=== PATIENT | female | born 1975 | race Caucasian/White ===

== ENCOUNTER 2016-05-28 07:00 | Inpatient (IN) | payer MEDICAID ==
[~2016-05-28 07:00] MED LIST: Dexamethasone 4 MG/ML SDV ONE; Neostigmine Methylsulfate 1 MG/ML 5 ML Syringe ONE; Ondansetron 4 MG/2 ML SDV ONE; Propofol 200 MG/20 ML SDV ONE; Rocuronium 50 MG/5 ML Vial ONE; Succinylcholine/Normal Saline 200 MG/10 ML Syringe ONE; cefOXitin 2 GM Vial ONE; cefOXitin 2 GM in Sodium Chloride 0.9% 50 ML IV ONE; fentaNYL 250 MCG/5 ML SDV ONE
[2016-05-28] MEDS ORDERED: Celecoxib 200 MG Cap PO ONE (07:30)
[2016-05-28] MEDS ORDERED: Acetaminophen Soln 650 MG/20.3 ML UD Cup PO ONE (07:30)
[2016-05-28] MEDS ORDERED: Dextrose 5%-Lactated Ringers 1,000 ML IV SCH (07:30)
[2016-05-28] MEDS ORDERED: Scopolamine 1.5 MG Transdermal Patch TOP SCH (07:30)
[2016-05-28] MEDS ORDERED: Gabapentin 300 MG Cap PO ONE (07:30)
[2016-05-28] MEDS ORDERED: fentaNYL 100 MCG/2 ML SDV ONE (07:40)
[2016-05-28] MEDS ORDERED: Pantoprazole 40 MG Vial IVPUSH ONE (08:00)
[2016-05-28] MEDS ORDERED: Lidocaine 2% 100 MG/5 ML Syringe IVPUSH ONE (08:30)
[2016-05-28] MEDS ORDERED: Ropivacaine 60 ML, Dexamethasone 8 MG, EPINEPHrine 0.4 MG, Sodium Chloride 0.9% 17.6 ML NERVRT SCH ×4 (08:30)
[2016-05-28] MEDS ORDERED: cefOXitin 2 GM in Sodium Chloride 0.9% 50 ML IV ONE (08:30)
[2016-05-28] MEDS ORDERED: Ketamine 500 MG/5 ML MDV IV SCH (08:30)
[2016-05-28] MEDS ORDERED: Lidocaine 1% 2 ML ONE (08:48)
[2016-05-28] MEDS ORDERED: Oxymetazoline 0.05% Nasal Spray 15 ML Bottle ONE (09:02)
[2016-05-28] MEDS ORDERED: Lactated Ringers 1,000 ML ONE (09:31)
[2016-05-28] MEDS ORDERED: fentaNYL 250 MCG/5 ML SDV ONE (09:45)
[2016-05-28] MEDS ORDERED: Labetalol 20 MG/4 ML Syringe ONE (10:02)
[2016-05-28] MEDS ORDERED: cefOXitin 2 GM Vial ONE (10:28)
[2016-05-28] MEDS ORDERED: Sodium Chloride 0.9% 10 ML ONE (10:28)
[2016-05-28] MEDS ORDERED: fentaNYL 100 MCG/2 ML SDV IVPUSH ONE (11:25)
[2016-05-28] MEDS ORDERED: hydrOXYzine HCl 50 MG/ML SDV IM ONE (11:26)
[2016-05-28] MEDS ORDERED: HYDROmorphone/Normal Saline 15 MG/30 ML PCA IV ONE (13:15)
[2016-05-28] MEDS ORDERED: HYDROmorphone/Normal Saline 15 MG/30 ML PCA IV PRN (13:26)
[2016-05-28] MEDS ORDERED: Naloxone 0.4 MG/ML SDV IV PRN (13:26)
[2016-05-28] MEDS: Dextrose 5%-Lactated Ringers 1,000 ML IV SCH ×2 (13:42→21:45)
[2016-05-28] MEDS: Lidocaine 0.4%/D5W 2 GM/500 ML BAG IV SCH (13:44)
[2016-05-28] MEDS ORDERED: Ondansetron 4 MG/2 ML SDV IVPUSH PRN (13:45)
[2016-05-28] MEDS ORDERED: hydrOXYzine HCl 50 MG/ML SDV IM PRN (13:45)
[2016-05-28] MEDS ORDERED: SCOPOLAMINE PATCH ASK TOP SCH (13:45)
[2016-05-28] MEDS ORDERED: Labetalol 20 MG/4 ML Syringe IVPUSH PRN (13:45)
[2016-05-28] MEDS ORDERED: Metoclopramide 10 MG/2 ML SDV IV PRN (13:48)
[2016-05-28] MEDS ORDERED: diphenhydrAMINE 50 MG/ML SDV IV PRN (13:49)
[2016-05-28] MEDS ORDERED: Lidocaine 0.4%/D5W 2 GM/500 ML BAG IV SCH (14:00)
[2016-05-28] MEDS: Gabapentin 250 MG/5 ML Solution ML 470 ML Bottle PO SCH ×2 (14:35→21:14)
[2016-05-28] MEDS: cefOXitin 2 GM in Sodium Chloride 0.9% 50 ML IV SCH ×2 (14:40→19:15)
[2016-05-28] MEDS ORDERED: MVI, Adult with Vitamin K 10 ML, Thiamine 200 MG, Chromium/Copper/Mang/Selen/Zn 1 ML in... IV SCH ×4 (16:00)
[2016-05-28] MEDS: Acetaminophen Soln 650 MG/20.3 ML UD Cup PO SCH ×2 (16:04→21:14)
[2016-05-28] MEDS: Heparin Sodium 5,000 Units/ML Vial SUBCUT SCH (19:04)
[2016-05-29] MEDS: Lidocaine 0.4%/D5W 2 GM/500 ML BAG IV SCH (01:59)
[2016-05-29] MEDS: cefOXitin 2 GM in Sodium Chloride 0.9% 50 ML IV SCH ×2 (02:07→08:56)
[2016-05-29] MEDS ORDERED: Iohexol 647 MG/ML 50 ML SDV PO SCH (03:00)
[2016-05-29] MEDS: Dextrose 5%-Lactated Ringers 1,000 ML IV SCH ×2 (04:06→12:26)
[2016-05-29] MEDS: Acetaminophen Soln 650 MG/20.3 ML UD Cup PO SCH ×4 (04:10→21:40)
[2016-05-29] MEDS: Heparin Sodium 5,000 Units/ML Vial SUBCUT SCH ×2 (05:24→17:19)
[2016-05-29] MEDS: Pantoprazole 40 MG Vial IVPUSH SCH (05:24)
[2016-05-29] MEDS: Celecoxib 200 MG Cap PO SCH (09:00)
[2016-05-29] MEDS ORDERED: Non-Formulary Medication 1 Each (Fexofenadine [Allegra] 180 MG) PO SCH (09:00)
[2016-05-29] MEDS: SCOPOLAMINE PATCH CHECK TOP SCH (09:01)
[2016-05-29] MEDS: Gabapentin 250 MG/5 ML Solution ML 470 ML Bottle PO SCH ×3 (09:03→20:19)
--- NOTE | 2016-05-29 09:12 | PN ---
DATE OF SERVICE: 05/29/2016 SUBJECTIVE: Ameena is postop day 1. She is tolerating the clear liquid diet. She did have her AUTOMATIC DRILL OPERATOR last night for pain control. She has been up ambulating. REVIEW OF SYSTEMS: Remainder of review of systems negative for any pertinent positives or negatives. OBJECTIVE: GENERAL: Ameena Carmichael is a 41-year-old female. She is alert and orientated. VITAL SIGNS: TPR is 97, 67, 20, blood pressure 181/91. It was rechecked at 150/85. HEENT: Negative. NECK: Supple. HEART: Regular rate and rhythm. LUNGS: Clear. ABDOMEN: Dressings are dry and intact. Abdominal binder is on. She has 1 HARLEY drain, which has drained 128 mL of a serosanguineous drainage. EXTREMITIES: Without peripheral edema. ASSESSMENT: 1. Bilateral tap block. 2. Laparoscopic Roselyn-en-Y gastric bypass surgery and liver biopsy. 3. Repair of incarcerated umbilical hernia and diaphragmatic hernia and excision of skin tag, left thigh. 4. Morbid obesity. 5. Hepatomegaly. 6. Incarcerated umbilical hernia. 7. Periesophageal hernia. 8. Skin tag left thigh on 05/28/2016. PLAN: 1. Discontinue AUTOMATIC DRILL OPERATOR. 2. Discontinue telemetry and continuous pulse ox when lidocaine is in. 3. Discontinue Choi catheter. 4. Decrease IV to 100 mL per hour. 5. Step-2 gastric bypass diet without cereal. She is to restart her home medication of Nilam 180 mg p.o. b.i.d., topiramate 50 mg p.o. daily, and fluoxetine/Prozac 40 mg p.o. daily. 6. Good pulmonary toilet encouraged. 7. We will evaluate p.r.n. or in a.m. Ruby Johnson PA-C /[id number]
--- NOTE | 2016-05-29 09:26 | CR ---
Findings: Surgical drain left upper quadrant. Contrast within the Roselyn limb. No dilatation. No gross evidence for leakage.
[2016-05-29] MEDS: Topiramate 25 MG Tab PO SCH (10:03)
[2016-05-29] MEDS: Loratadine 10 MG Tab.DIS PO SCH (10:04)
[2016-05-29] MEDS: FLUoxetine 20 MG Cap PO SCH (10:04)
[2016-05-29] MEDS: HYDROmorphone 2 MG Tab PO PRN ×3 (13:09→23:46)
[2016-05-29] MEDS ORDERED: MVI, Adult with Vitamin K 10 ML, Thiamine 200 MG, Chromium/Copper/Mang/Selen/Zn 1 ML in... IV SCH ×4 (16:00)
[2016-05-30] MEDS: Dextrose 5%-Lactated Ringers 1,000 ML IV SCH (02:55)
[2016-05-30] MEDS: Acetaminophen Soln 650 MG/20.3 ML UD Cup PO SCH ×4 (05:03→21:38)
[2016-05-30] MEDS: Pantoprazole 40 MG Vial IVPUSH SCH (05:04)
[2016-05-30] MEDS: Heparin Sodium 5,000 Units/ML Vial SUBCUT SCH ×2 (05:04→18:03)
[2016-05-30] MEDS: HYDROmorphone 2 MG Tab PO PRN ×4 (05:22→21:37)
[2016-05-30] MEDS: Celecoxib 200 MG Cap PO SCH (08:38)
[2016-05-30] MEDS: Loratadine 10 MG Tab.DIS PO SCH (08:38)
[2016-05-30] MEDS: Topiramate 25 MG Tab PO SCH (08:39)
[2016-05-30] MEDS: FLUoxetine 20 MG Cap PO SCH (08:39)
[2016-05-30] MEDS: Gabapentin 250 MG/5 ML Solution ML 470 ML Bottle PO SCH ×3 (08:47→20:44)
[2016-05-30] MEDS: SCOPOLAMINE PATCH CHECK TOP SCH (08:58)
[2016-05-30] MEDS ORDERED: Cyanocobalamin (Vitamin B12) 1,000 MCG/ML SDV IM ONE (09:00)
[2016-05-30] MEDS ORDERED: Magnesium Hydroxide 400 MG/5 ML Susp 30 ML Cup PO PRN (12:26)
[2016-05-30] MEDS ORDERED: Magnesium Hydroxide 400 MG/5 ML Susp 30 ML Cup PO ONE (13:00)
[2016-05-31] MEDS: Acetaminophen Soln 650 MG/20.3 ML UD Cup PO SCH ×2 (04:24→09:09)
[2016-05-31] MEDS: HYDROmorphone 2 MG Tab PO PRN (04:24)
[2016-05-31] MEDS: Heparin Sodium 5,000 Units/ML Vial SUBCUT SCH (05:50)
[2016-05-31] MEDS: Topiramate 25 MG Tab PO SCH (09:08)
[2016-05-31] MEDS: Celecoxib 200 MG Cap PO SCH (09:08)
[2016-05-31] MEDS: FLUoxetine 20 MG Cap PO SCH (09:09)
[2016-05-31] MEDS: Loratadine 10 MG Tab.DIS PO SCH (09:09)
[2016-05-31] MEDS: SCOPOLAMINE PATCH CHECK TOP SCH (09:10)
[2016-05-31] MEDS: Gabapentin 250 MG/5 ML Solution ML 470 ML Bottle PO SCH (09:13)
[2016-05-31 11:12] VITALS: BP 145/86
--- NOTE | 2016-06-01 12:35 | PN ---
DATE OF SERVICE: 05/30/2016 The patient has been afebrile with stable vital signs. No major problems have been noted overnight. Oral intake was fairly good, around 1200 mL. We will go on to the step-2 diet today. Otherwise, her IV , and probably ready for discharge home tomorrow. Checo Taveras MD /[id number]
--- NOTE | 2016-06-01 14:08 | DISCH ---
FINAL DIAGNOSES: 1. Morbid obesity. 2. Incarcerated umbilical hernia. 3. Large paraesophageal diaphragmatic hernia. 4. Marked hepatomegaly. 5. Irritated skin tag at left thigh. SECONDARY DIAGNOSES: 1. History of depression. 2. History of carcinoma in situ of the cervix. OPERATIVE PROCEDURE: Laparoscopic Roselyn-en-Y gastric bypass with long limb gastroenterostomy, Bhavesh-Cut needle liver biopsy, repair of incarcerated umbilical hernia, and repair of paraesophageal diaphragmatic hernia along with excision of skin tags at left thigh. This was done on 05/28. HOSPITAL COURSE: This is a 41-year-old female, presenting with longstanding morbid obesity and increasingly significant comorbidities. After preoperative evaluation and discussion, she wished to proceed with a gastric bypass procedure. She also had a large umbilical hernia, which had to be repaired concurrently. These were performed on the date of surgery. The patient also had an irritated skin tag on her left thigh, which was excised. On examination, the patient has marked hepatomegaly and Bhavesh-Cut needle liver biopsy was obtained and a large paraesophageal diaphragmatic hernia was also present and likewise repaired. Postoperatively, the patient did have enough pain, despite the narcotic regimen, that she required some IV and subsequently oral Dilaudid, likely related to the extent of the umbilical hernia repair with the TAP blocks not quite covering that areas. The patient otherwise did well and will be discharged home with a plan for followup with Ruby Johnson in [facility] on 06/05/2016. MEDICATIONS: As per the medication reconciliation sheet, in addition to her usual medications. She will be on: 1. Tylenol p.r.n. 2. Celebrex 200 mg daily x14 days. 3. Dilaudid 2 mg to 4 mg q.4 hours p.r.n., #40. Checo Taveras MD /[id number]
--- NOTE | 2016-06-05 10:06 | OR ---
DATE OF PROCEDURE: 05/28/2016 PREOPERATIVE DIAGNOSES: 1. Morbid obesity. 2. Irritated skin tags, left upper thigh. POSTOPERATIVE DIAGNOSES: 1. Morbid obesity. 2. Irritated skin tags, left upper thigh. 3. Marked hepatomegaly. 4. Incarcerated umbilical hernia. 5. Paraesophageal diaphragmatic hernia. OPERATIVE PROCEDURE: 1. Diagnostic laparoscopy with a laparoscopic Roselyn-en-Y gastric bypass with long limb gastroenterostomy (93073). 2. Bhavesh-Cut needle liver biopsy (95847). 3. Repair of incarcerated umbilical hernia (86154). 4. Repair of paraesophageal diaphragmatic hernia (51865). 5. Excision of irritated skin tags of left thigh (30388). ANESTHESIA: General. BULK MAIL CLERK: Ruby Johnson PA-C. INDICATION FOR PROCEDURE: This is a 41-year-old female presenting with longstanding morbid obesity and increasingly significant comorbidities. After preop evaluations and discussion, she wished to proceed with a gastric bypass procedure. Potential risks of procedure including bleeding, infection, leaks from various GI tract closures, problems with bowel obstruction over time, as well as possibility of cardiopulmonary, septic, or hemorrhagic complications leading to were all discussed, and the patient wishes to proceed. DETAILS OF PROCEDURE: The patient was taken to the operating room and placed in a supine position. After general endotracheal anesthesia was induced, she was converted to a lithotomy position. Initially, the small skin tag in the medial left upper thigh was excised, and at the end, this was then simply covered with Band-Aid. A Choi catheter was inserted along the gastrointestinal catheter, and the abdomen prepped and draped. The lateral transabdominal plane blocks were placed in the subcostal location using 40 mL of saline solution containing bupivacaine, dexamethasone, and epinephrine. 40 mL of this was injected on each side using direct ultrasound surveillance, and at that point, the TAP blocks were then completed. At 15 cm inferior, 5 cm left of xiphoid process, a transverse incision was made. The peritoneal cavity entered under direct vision with Optiview trocar inflated to 15 mmHg pressure of CO2. Laparoscope was reinserted. No underlying trocar insertion site injuries were seen. Following this, 5 additional trocars were placed across the upper mid abdomen and general exploration was undertaken. The patient was noted to have marked hepatomegaly with liver volume being roughly 2 to 3 times normal, liver grossly fatty infiltrated. Bhavesh- Cut needle biopsy was obtained from left lobe of the liver. Minimal bleeding from the biopsy sites was controlled with electrocautery. At this point, the camera was brought to one of the epigastric ports and using Harmonic Scalpel along with external pressure, the incarcerated omentum contained within the umbilical hernia was dissected free and delivered back into the peritoneal cavity. At this point, the omentum was then divided in the midline up to level of the transverse colon. This allowed identification of the small bowel with ligament of Treitz. Small bowel was then traced out 200 cm distal to that point and was divided transversely with a JEFF stapler. Small bowel was then traced out additional 150 cm where the [id number] enteroenterostomy was accomplished with internal firing of the Endo-JEFF 60 mm stapler, opening was then closed transversely with the same stapler and angles anastomosed and mesenteric defect approximated with some 0 Ethibond stitch along with fibrin sealant divided and Roselyn limb was from the mesentery for a few centimeters, which allowed an antecolic position of the Roselyn limb up to the level of the gastroesophageal junction without tension. The liver was then retracted anteriorly. The patient noted to have a moderate-sized diaphragmatic hernia and had a major paraesophageal component to it with repair prolapse of perigastric fat as well as some gastric fundus and strand of omentum was noted to be passing a plane anterior to the course of the esophagus. This was reduced and the peritoneum over the hernia incised and reflected downward and an anterior repair of the diaphragmatic hernia was then accomplished with a series of 0 Ethibond sutures reinforced with PTFE pledgets. At this point, the gastrointestinal catheter inflated to 15 mL and pulled up snugly against the EG junction, gastric wall apex balloon was then marked with electrocautery, and balloon catheter was deflated and pulled up in the esophagus. The lesser omental tissue adjacent to gastric cardia was then incised allowing the dissection behind the stomach to begin. The pouch formation was initiated with a transverse firing of the JEFF stapler at the level of the cauterized maria antonia in the gastric cardia. Pouch was then completed with some additional firings of JEFF stapler up to and through the angle of His. Upon completion of the pouch, both staple lines were noted to be intact. The anvil of a 21 mm EEA stapler was then attached to a Tolland sump type tube, was brought out through a small opening in the gastric pouch allowing the anvil likewise to be pulled down within the gastric pouch. The Roselyn limb was then from the mesentery for a few centimeters, which allowed an antecolic position of the Roselyn limb up to the level of the gastroesophageal junction without tension. The Roselyn limb was then opened and the main body of the EEA stapler passed several centimeters in the lumen. Small bowel brought up the anvil and united with it, thus creating gastrojejunostomy. Upon removal of stapler, double donuts of mucosa were noted within it. The small bowel was closed off with a vascular staple line. Gastrojejunostomy was reinforced with some 3-0 Vicryl seromuscular stitch along with fibrin sealant. Leak test was accomplished with injection of 120 mL of air in the gastric pouch while this was submerged with cefoxitin-containing saline solution. No leaks were identified. Single Yung-Martinez drain was then placed adjacent to gastrojejunostomy and to left subcostal trocar site. Attention to the umbilical hernia was once again undertaken. Once again, the camera was moved up to one of the epigastric trocar sites. A series of stab wounds on the right side of the hernia was then made, and using the endoscopic suture passer, 0 Vicryl sutures were placed such that one side of the suture was on the left and another on the right side of the hernia. Once these were in place, the remaining trocars were removed. The peritoneal cavity deflated, and the sutures were then tied up after the CO2 retention had been removed from the abdominal wall and this appeared to satisfactorily close off the umbilical hernia. The skin sites were then closed with 4-0 Vicryl skin stitch and drains affixed with 4-0 Vicryl stitch as well. The patient was taken to the recovery room in satisfactory condition. Physician assistant professor of psychology, Ruby Johnson, played an essential role in assisting in this case, helping to position the patient, retract structures as needed, as well as suturing and cutting sutures as indicated. Her presence improved patient safety and decreased operative time. Checo Taveras MD /[id number]
== END 2016-05-31 12:35 | disposition home or self-care (01) | DRG 403 ==
LOC: JP.MS 07:00 → JP.SDS 07:01 → EDSTATUS 09:45 → JP.2SS 12:30
PROVIDERS: ADMIT Surgery; ATTEND Surgery
PROC: 0FB24ZX Excision of Left Lobe Liver, Percutaneous Endoscopic Approach, Diagnostic (ICD-10-PCS; principal; 2016-05-28)
PROC: 0D164ZA Bypass Stomach to Jejunum, Percutaneous Endoscopic Approach (ICD-10-PCS; principal; 2016-05-28)
PROC: 0WQF4ZZ Repair Abdominal Wall, Percutaneous Endoscopic Approach (ICD-10-PCS; principal; 2016-05-28)
PROC: 0BQR4ZZ (ICD-10-PCS; principal; 2016-05-28)
PROC: 3E0T3BZ Introduction of Anesthetic Agent into Peripheral Nerves and Plexi, Percutaneous Approach (ICD-10-PCS; principal; 2016-05-28)
PROC: 0BQS4ZZ (ICD-10-PCS; principal; 2016-05-28)
PROC: 0HBJXZX Excision of Left Upper Leg Skin, External Approach, Diagnostic (ICD-10-PCS; principal; 2016-05-28)
DX: E66.01 Morbid (severe) obesity due to excess calories (principal); Z68.43 Body mass index [BMI] 50.0-59.9, adult; K42.0 Umbilical hernia with obstruction, without gangrene; K44.9 Diaphragmatic hernia without obstruction or gangrene; L91.8 Other hypertrophic disorders of the skin; F32.9 Major depressive disorder, single episode, unspecified; K21.9 Gastro-esophageal reflux disease without esophagitis; G93.5 Compression of brain; G47.30 Sleep apnea, unspecified; R16.0 Hepatomegaly, not elsewhere classified; Z88.8 Allergy status to other drugs, medicaments and biological substances; J30.2 Other seasonal allergic rhinitis; E53.8 Deficiency of other specified B group vitamins; K76.0 Fatty (change of) liver, not elsewhere classified
CPT/HCPCS: 36415; 74240; 74240-26; 82962; 86850; 86900; 86901; 88302; 88304; 88307; A9270-GY; C9113; J0171; J0694; J1100; J1170; J1644; J2001; J2405; J2704; J2795; J3010; J3410; J3411; J3420; J7030; J7040; J7042; J7050; J7120; Q9967

== ENCOUNTER 2016-06-25 08:57 | Inpatient (IN) | payer MEDICAID ==
[~2016-06-25 08:57] MED LIST changes: -Dexamethasone 4 MG/ML SDV ONE; -Neostigmine Methylsulfate 1 MG/ML 5 ML Syringe ONE; -Ondansetron 4 MG/2 ML SDV ONE; -Propofol 200 MG/20 ML SDV ONE; -Rocuronium 50 MG/5 ML Vial ONE; -Succinylcholine/Normal Saline 200 MG/10 ML Syringe ONE; -cefOXitin 2 GM Vial ONE; -cefOXitin 2 GM in Sodium Chloride 0.9% 50 ML IV ONE; +diphenhydrAMINE 50 MG/ML SDV IV PRN; -fentaNYL 250 MCG/5 ML SDV ONE
[2016-06-25] MEDS ORDERED: Cyanocobalamin (Vitamin B12) 1,000 MCG/ML SDV IM ONE (10:00)
[2016-06-25] MEDS ORDERED: Lactated Ringers 1,000 ML IV SCH (10:00)
[2016-06-25] MEDS ORDERED: fentaNYL 100 MCG/2 ML SDV ONE (10:39)
[2016-06-25] MEDS ORDERED: Propofol 200 MG/20 ML SDV ONE ×2 (10:39→20:05)
[2016-06-25] MEDS ORDERED: Midazolam 1 MG/ML 2 ML SDV ONE ×2 (10:39→20:04)
[2016-06-25] MEDS ORDERED: MVI, Adult with Vitamin K 10 ML, Thiamine 200 MG, Chromium/Copper/Mang/Selen/Zn 1 ML in... IV ONE ×4 (11:00)
[2016-06-25] MEDS ORDERED: Glycopyrrolate 0.2 MG/ML 2 ML SYRINGE IVPUSH ONE (11:00)
[2016-06-25] MEDS ORDERED: fentaNYL 100 MCG/2 ML SDV IVPUSH ONE ×2 (12:34→12:56)
[2016-06-25] MEDS ORDERED: Naloxone 0.4 MG/ML SDV IV PRN ×2 (13:46→23:46)
[2016-06-25] MEDS: HYDROmorphone/Normal Saline 15 MG/30 ML PCA IV PRN (13:56)
--- NOTE | 2016-06-25 14:00 | CT ---
CT abdomen and pelvis indication: Abdominal pain status post dilatation at the GE junction. Total DLP 1465 Findings: There are 2 tiny 1-2 millimeter pulmonary nodules right lung base. Left lung base is clear . There is free air within the upper abdomen tracking inferiorly about the vessels. It is moderate. There is hazy fat stranding about the gastric pouch and the anastomosis at the gastrojejunostomy ricardo ction. Findings indicate bowel perforation. No large focal fluid collection. Air-fluid levels within upper small bowel loops are evident. Mild gaseous distention of the upper loops of small bowel. Dup licated collecting system right kidney. Scarring with multiple stones right kidney. Moderate fecal r esidual. Trace amount of free pelvic fluid. Bladder is unremarkable. No aneurysmal dilatation of the aorta. Gallbladder unremarkable. Adrenal glands are within normal limits. Pancreas within normal li mits. Spleen within normal limits. Impression: 1. Bowel perforation status post dilatation at the gastric jejunostomy junction. Findings discussed with Dr. Taveras. 2. Pulmonary nodules right lung base. Follow-up with Fleischner criteria. Fleischner Society Guideli corrine: Nodule Size (mm)*: Less than or equal to 4 Low Risk Patient (1): No followup needed (3) High Risk Patient (2): Followup CT at 12 months; if unchanged, no further followup (4) Nodule Size (mm)*: Greater than 4-6 Low Risk Patient (1): Followup CT at 12 months; if unchanged, no further followup (4) High Risk Patient (2): Initial followup CT at 6-12 months then at 18-24 months if no change (4) Nodule Size (mm)*: Greater than 6-8 Low Risk Patient (1): Initial followup CT at 6-12 months then at 18-24 months if no change High Risk Patient (2): Initial CT at 3-6 months then at 9-12 months and 24 months if no change Nodule Size (mm)*: Greater than 8 Low Risk Patient (1): Followup CT at around 3, 9 and 24 months, dynamic contrast-enhanced CT, PET an d/or biopsy High Risk Patient (2): Same as for low risk patient (4) Note: Newly detected indeterminate nodule in persons 35 years of age or older. *Average length and width. (1) Minimal or absent history of smoking and of other known risk factors. (2) History of smoking or of other known risk factors. (3) The risk of malignancy in this category (Less than 1%) is substantially less than that in a base line CT scan of an asymptomatic smoker. (4) Non-solid (ground-glass) or partly solid nodules may require longer followup to exclude indolent adenocarcinoma.
[2016-06-25] MEDS ORDERED: Dextrose 5%-Lactated Ringers 1,000 ML IV SCH ×2 (14:15→23:45)
[2016-06-25] MEDS ORDERED: Clindamycin Phosphate 900 MG in Sodium Chloride 0.9% 100 ML IV ONE (14:30)
[2016-06-25] MEDS ORDERED: Ondansetron 4 MG/2 ML SDV IV PRN (14:44)
[2016-06-25] MEDS: LORazepam 2 MG/ML MDV IV PRN (16:53)
[2016-06-25] MEDS: ceFAZolin 2 GM in Sodium Chloride 0.9% 50 ML IV SCH (16:53)
[2016-06-25] MEDS: Pantoprazole 40 MG Vial IV SCH (17:02)
[2016-06-25] MEDS ORDERED: Meropenem 500 MG SDV ONE (20:01)
[2016-06-25] MEDS ORDERED: fentaNYL 250 MCG/5 ML SDV ONE (20:04)
[2016-06-25] MEDS ORDERED: Rocuronium 50 MG/5 ML Vial ONE (20:05)
[2016-06-25] MEDS ORDERED: Neostigmine Methylsulfate 1 MG/ML 5 ML Syringe ONE (20:05)
[2016-06-25] MEDS ORDERED: Succinylcholine/Normal Saline 200 MG/10 ML Syringe ONE (20:05)
[2016-06-25] MEDS ORDERED: Dexamethasone 4 MG/ML SDV ONE (20:05)
[2016-06-25] MEDS ORDERED: Ondansetron 4 MG/2 ML SDV ONE (20:05)
[2016-06-25] MEDS ORDERED: ceFAZolin 1 GM Vial ONE (20:38)
[2016-06-25] MEDS ORDERED: fentaNYL 25 MCG/HR Transdermal Patch TRDERM SCH ×2 (21:15→23:45)
[2016-06-25] MEDS ORDERED: Lactated Ringers 1,000 ML ONE (21:16)
[2016-06-25] MEDS ORDERED: Naloxone 0.4 MG/ML SDV ONE (21:27)
[2016-06-25] MEDS: Clindamycin Phosphate 900 MG in Sodium Chloride 0.9% 100 ML IV SCH (22:30)
[2016-06-25] MEDS ORDERED: Labetalol 20 MG/4 ML Syringe IVPUSH PRN (23:46)
[2016-06-25] MEDS ORDERED: HYDROmorphone/Normal Saline 15 MG/30 ML PCA IV PRN (23:46)
[2016-06-25] MEDS ORDERED: Heparin Sodium 5,000 Units/ML Vial SUBCUT SCH (23:46)
[2016-06-25] MEDS ORDERED: Pantoprazole 40 MG Vial IVPUSH SCH (23:46)
[2016-06-26] MEDS: ceFAZolin 2 GM in Sodium Chloride 0.9% 50 ML IV SCH ×3 (00:08→15:33)
[2016-06-26] MEDS: Metoclopramide 10 MG/2 ML SDV IV PRN ×2 (04:29→10:20)
[2016-06-26] MEDS: Clindamycin Phosphate 900 MG in Sodium Chloride 0.9% 100 ML IV SCH ×3 (05:08→22:07)
[2016-06-26] MEDS ORDERED: Dextrose 5%-Lactated Ringers 1,000 ML IV SCH (07:45)
[2016-06-26] MEDS ORDERED: FENTANYL PATCH CHECK TOP SCH ×2 (09:00)
[2016-06-26] MEDS: FENTANYL PATCH CHECK TOP SCH ×2 (09:08→20:05)
[2016-06-26] MEDS: Heparin Sodium 5,000 Units/ML Vial SUBCUT SCH ×2 (09:10→22:58)
--- NOTE | 2016-06-26 09:24 | PN ---
DATE OF SERVICE: 06/26/2016 SUBJECTIVE: Ameena is postop day 1. She states her pain is controlled. She is sitting up in the chair. She is having a difficult time staying awake, has no questions or concerns. OBJECTIVE: GENERAL: Ameena Carmichael is a 41-year-old female. VITAL SIGNS: TPR is 96.1, 91, 16, blood pressure is 126/70. HEENT: Negative. NECK: Supple. HEART: Regular rate and rhythm. LUNGS: Clear. ABDOMEN: Dressings dry and intact. Abdominal binder is on. HARLEY drains have put out 30 mL and 5 mL of a light pink drainage. EXTREMITIES: Without peripheral edema. ASSESSMENT: 1. Diagnostic laparoscopy for possible perforation, 06/25/2016. 2. EGD with dilatation for dysphagia. PLAN: 1. Upper gastrointestinal with water-soluble contrast post Roselyn-en-Y in a.m. on 06/27/2016 with water-soluble contrast; scheduled as stated 06/27/2016 at 0400 hours. 2. Discontinue Choi catheter. 3. Decrease IV to 100 mL per hour. 4. Good pulmonary toilet encouraged. 5. We will evaluate p.r.n. or in a.m. Ruby Johnson PA-C /[id number]
[2016-06-26] MEDS: Dextrose 5%-Lactated Ringers 1,000 ML IV SCH (09:40)
--- NOTE | 2016-06-26 12:23 | PN ---
DATE OF SERVICE: 06/25/2016 The patient earlier underwent an upper GI endoscopy with dilation of the gastrojejunostomy. In the recovery room, she was initially complaining of some pain in the lower abdomen. This largely subsided, but as a precaution, we obtained a CT scan of the abdomen without contrast. This did show some free air in the upper and mid abdomen consistent with a perforation. No fluid collection was noted at this point around the area of the gastrojejunostomy. The patient clinically at this point is fairly stable, showing some minor discomfort on palpation and not complaining of more than a dull type pain. Given this, I think this is the case we might try treating nonoperatively. We will initiate antibiotics with Ancef and clindamycin and n.p.o. except for very rare ice chips and follow things clinically. If her clinical status deteriorates in terms of increasing tenderness or any signs of sepsis, we would then at that point proceed with laparoscopy with control of the situation. Otherwise, if she does okay overnight, we may try some clear liquids as in our experience these microperforation due to the swelling and inflammation usually seal up fairly quickly. Checo Taveras MD /[id number]
--- NOTE | 2016-06-26 12:44 | OR ---
DATE OF PROCEDURE: 06/25/2016 PREOPERATIVE DIAGNOSIS: Probable stricture gastrojejunostomy. POSTOPERATIVE DIAGNOSIS: Stricture gastrojejunostomy. OPERATIVE PROCEDURE: Upper GI endoscopy with dilation gastrojejunostomy (31718). ANESTHESIA: IV sedation. INDICATION FOR PROCEDURE: The patient is 41-year-old status post Roselyn-en-Y gastric bypass on 05/31/2016, who presents now with symptoms suggestive of stricturing gastrojejunostomy. Plan is to proceed with upper GI endoscopy with dilation as well. Potential risks including bleeding and perforation were discussed, and the patient wishes to proceed. DETAILS OF PROCEDURE: The patient was taken to the operating room and placed in the left lateral decubitus position. IV sedation was administered, after which the upper GI endoscope was passed orally through the esophagus and into the gastric pouch. The patient was noted to have a moderately tight stricture at the gastrojejunostomy. Bard gastrointestinal balloon catheter was then centered across the anastomosis with fluoroscopic surveillance and inflated to 36-Austrian size. It was held in position balloon catheter was deflated and withdrawn. The scope could then easily be passed through the anastomosis with no complications noted. The scope was then withdrawn and the procedure concluded. The patient was taken to the recovery room in satisfactory condition. Checo Taveras MD /[id number]
[2016-06-26] MEDS: hydrOXYzine HCl 50 MG/ML SDV IM PRN (13:18)
[2016-06-26] MEDS: LORazepam 2 MG/ML MDV IV PRN (18:53)
[2016-06-26] MEDS: MVI, Adult with Vitamin K 10 ML, Thiamine 200 MG, Chromium/Copper/Mang/Selen/Zn 1 ML in... IV SCH ×4 (18:54)
[2016-06-26] MEDS ORDERED: Tamsulosin 0.4 MG Cap.ER PO ONE (19:14)
[2016-06-26] MEDS ORDERED: Loratadine 10 MG Tab.DIS PO SCH (19:15)
[2016-06-26] MEDS: Pantoprazole 40 MG Vial IV SCH (19:32)
[2016-06-27] MEDS ORDERED: Tamsulosin 0.4 MG Cap.ER PO ONE ×2 (00:30→09:00)
[2016-06-27] MEDS: ceFAZolin 2 GM in Sodium Chloride 0.9% 50 ML IV SCH ×3 (00:35→16:44)
[2016-06-27] MEDS: Loratadine 10 MG Tab.DIS PO SCH ×2 (00:41→08:55)
[2016-06-27] MEDS: HYDROmorphone/Normal Saline 15 MG/30 ML PCA IV PRN (02:31)
[2016-06-27] MEDS ORDERED: Iohexol 647 MG/ML 50 ML SDV PO STA (03:30)
[2016-06-27] MEDS: Dextrose 5%-Lactated Ringers 1,000 ML IV SCH (04:14)
[2016-06-27] MEDS ORDERED: Pneumococcal Polyvalent-23 Vaccine 0.5 ML SDV IM ONE (05:06)
[2016-06-27] MEDS: Clindamycin Phosphate 900 MG in Sodium Chloride 0.9% 100 ML IV SCH ×3 (05:16→21:42)
[2016-06-27] MEDS: FLUoxetine 20 MG Cap PO SCH (08:56)
[2016-06-27] MEDS: Modafinil 100 MG Tab PO SCH (08:56)
[2016-06-27] MEDS: Topiramate 25 MG Tab PO SCH (08:56)
[2016-06-27] MEDS: FENTANYL PATCH CHECK TOP SCH ×2 (08:56→20:47)
[2016-06-27] MEDS: Cyanocobalamin (Vitamin B12) 1,000 MCG Tab SL SCH (08:57)
[2016-06-27] MEDS ORDERED: Cyanocobalamin (Vitamin B12) 1,000 MCG/ML SDV IM ONE (09:00)
[2016-06-27] MEDS: Heparin Sodium 5,000 Units/ML Vial SUBCUT SCH ×2 (10:11→21:43)
[2016-06-27] MEDS: Metoclopramide 10 MG/2 ML SDV IV PRN (14:01)
[2016-06-27] MEDS: MVI, Adult with Vitamin K 10 ML, Thiamine 200 MG, Chromium/Copper/Mang/Selen/Zn 1 ML in... IV SCH ×4 (16:44)
[2016-06-27] MEDS: Pantoprazole 40 MG Vial IV SCH (19:09)
[2016-06-27] MEDS: Tamsulosin 0.4 MG Cap.ER PO SCH (21:50)
[2016-06-28] MEDS: ceFAZolin 2 GM in Sodium Chloride 0.9% 50 ML IV SCH ×4 (00:35→23:51)
[2016-06-28] MEDS: LORazepam 2 MG/ML MDV IV PRN ×2 (04:19→13:51)
[2016-06-28] MEDS: Clindamycin Phosphate 900 MG in Sodium Chloride 0.9% 100 ML IV SCH ×3 (05:05→21:29)
[2016-06-28] MEDS: Dextrose 5%-Lactated Ringers 1,000 ML IV SCH (05:06)
[2016-06-28] MEDS: HYDROmorphone/Normal Saline 15 MG/30 ML PCA IV PRN (05:31)
[2016-06-28] MEDS: Topiramate 25 MG Tab PO SCH (08:06)
[2016-06-28] MEDS: FLUoxetine 20 MG Cap PO SCH (08:06)
[2016-06-28] MEDS: Cyanocobalamin (Vitamin B12) 1,000 MCG Tab SL SCH (08:06)
[2016-06-28] MEDS: Loratadine 10 MG Tab.DIS PO SCH (08:07)
[2016-06-28] MEDS: Modafinil 100 MG Tab PO SCH (08:12)
[2016-06-28] MEDS ORDERED: Fluconazole/Normal Saline 400 MG in Premix Bag 1 BAG IV ONE (09:00)
[2016-06-28] MEDS ORDERED: Magnesium Hydroxide 400 MG/5 ML Susp 30 ML Cup PO ONE (09:00)
[2016-06-28] MEDS: Heparin Sodium 5,000 Units/ML Vial SUBCUT SCH ×2 (09:19→21:30)
[2016-06-28] MEDS: Ondansetron 4 MG/2 ML SDV IVPUSH PRN ×2 (10:33→17:07)
[2016-06-28] MEDS: HYDROmorphone 2 MG Tab PO PRN ×4 (10:34→23:51)
--- NOTE | 2016-06-28 11:59 | PN ---
DATE OF SERVICE: 06/27/2016 The patient has been afebrile with stable vital signs. Upper GI x-ray looked good this morning, no signs of any leaks in the HARLEY drains. We will begin a clear liquid diet today. We will restart her on some oral medication, and we will have her get in the shower. I think we will need the WIRE HANGER going for today. She may be ready for discharge home either tomorrow or Wednesday adequate continuation of her clinical course. Checo Taveras MD /[id number]
[2016-06-28] MEDS: Metoclopramide 10 MG/2 ML SDV IV PRN ×2 (13:42→17:40)
[2016-06-28] MEDS: MVI, Adult with Vitamin K 10 ML, Thiamine 200 MG, Chromium/Copper/Mang/Selen/Zn 1 ML in... IV SCH ×8 (13:42→16:53)
--- NOTE | 2016-06-28 14:20 | PN ---
DATE OF SERVICE: 06/25/2016 Earlier today, the patient underwent upper endoscopy and was noted to have some abdominal pain. A CT scan was obtained, which showed some localized free air in the upper and mid abdomen. The patient at that point had become fairly comfortable and was admitted with IV antibiotics and n.p.o. status, as the evening has worn on; however, she is developing increasing pain along with some tachycardia with a heart rate around 100, and given this at this point, we would need to proceed with a diagnostic laparoscopy, laparotomy if necessary, and drainage and closure of the perforation at the gastrojejunostomy. Potential risks of the procedure including bleeding, infection, continued leak from the perforation site as well as possibility of cardiopulmonary, septic, or hemorrhagic complications leading to were discussed, and the patient wishes to proceed. The surgery will be undertaken shortly. Checo Taveras MD /[id number]
--- NOTE | 2016-06-28 15:03 | OR ---
DATE OF PROCEDURE: 06/25/2016 PREOPERATIVE DIAGNOSIS: Perforation at gastrojejunostomy. POSTOPERATIVE DIAGNOSES: 1. Perforation at gastrojejunostomy. 2. Focal peritonitis associated with a small anastomotic fluid collection. OPERATIVE PROCEDURE: Diagnostic laparoscopy with: 1. Closure of perforation gastrojejunostomy (23197). 2. Drainage of perianastomotic fluid collection associated with localized peritonitis (19161). ANESTHESIA: General. INDICATION FOR PROCEDURE: Please see progress note dictated earlier. DETAILS OF PROCEDURE: The patient was taken to the operating room and placed in a supine position. After general endotracheal anesthesia was induced, she was converted to a lithotomy position. Choi catheter was inserted along the gastrointestinal catheter, and the abdomen prepped and draped. Distal to the original camera port in the left mid abdomen, a transverse incision was made, and the peritoneal cavity entered under direct vision with an Optiview trocar, inflated to 15 mmHg pressure of CO2. Following this, 3 additional 5 mm trocars were placed across the upper and mid abdomen. General exploration was undertaken. Some early adhesions between the liver and the area of the gastrojejunostomy was then taken down. The patient was noted to have a small amount of slightly acosta-tinged fluid adjacent to the anastomosis. Cultures of this were obtained, and that area was associated with what appeared to be some localized peritonitis in terms of being reddened and associated with a small amount of fibrinous exudate. After this area was drained, the balloon catheter was inflated in the esophagus at 38 cm from the incisors, and with the area of the gastrojejunostomy submerged with an antibiotic-containing saline solution. Air was injected causing a tense distention over the area around the gastrojejunostomy. No new air bubbles could be seen. It was notable that there was a fair bit of air within the mesenteric of the Roselyn limb, and this may have been where the area had escaped into the intraperitoneal location. The most likely site for this perforation based on the tract of the hair within the mesentery would be in the right lower angle of the gastrojejunostomy. This area was reinforced with some sutures and then the entire anastomosis was reinforced with fibrin sealant. The area was irrigated with additional antibiotic-containing saline solution. Two Yung-Martinez drains were placed adjacent to gastrojejunostomy, and at that point, no further problems were noted. Trocars were removed. The peritoneal cavity was deflated. The skin incision was closed with some 4-0 Vicryl skin stitch. Dressing applied. The patient was taken to the recovery room in satisfactory condition. Checo Taveras MD /[id number]
[2016-06-28] MEDS: Pantoprazole 40 MG Tab.CR PO SCH (17:01)
[2016-06-28] MEDS: hydrOXYzine HCl 50 MG/ML SDV IM PRN (17:07)
[2016-06-28] MEDS: Tamsulosin 0.4 MG Cap.ER PO SCH (21:30)
[2016-06-29] MEDS: Dextrose 5%-Lactated Ringers 1,000 ML IV SCH (03:45)
[2016-06-29] MEDS: HYDROmorphone 2 MG Tab PO PRN ×4 (03:47→21:53)
[2016-06-29] MEDS: Clindamycin Phosphate 900 MG in Sodium Chloride 0.9% 100 ML IV SCH ×3 (05:33→21:51)
[2016-06-29] MEDS: ceFAZolin 2 GM in Sodium Chloride 0.9% 50 ML IV SCH ×2 (08:14→15:33)
[2016-06-29] MEDS ORDERED: Magnesium Hydroxide 400 MG/5 ML Susp 30 ML Cup PO ONE (08:15)
--- NOTE | 2016-06-29 09:37 | PN ---
DATE OF SERVICE: 06/29/2016 SUBJECTIVE: Ameena postop day 4. She is having some urinary retention and having quite a bit in the amount of pain. She was switched over to oral pain medication. She has been up ambulating. Vital signs have been stable. She has been afebrile. REVIEW OF SYSTEMS: Remainder of review of systems negative for any pertinent positives or negatives. OBJECTIVE: GENERAL: Ameena Carmichael is a 41-year-old female. VITAL SIGNS: TPR is 96.2, 102, 20, blood pressure 189/87. O2 is 94% on 2 L of O2. HEENT: Negative. NECK: Supple. HEART: Regular rate and rhythm. LUNGS: Clear. ABDOMEN: Dressings dry and intact. Abdominal binder is on. HARLEY drains have put out 45 and 320 of a light pink serous drainage over the past 24 hours. Oral intake was 440, and output was 615 via Choi catheter. EXTREMITIES: SCDs are on. ASSESSMENT: Diagnostic laparoscopy with closure, perforation at the gastrojejunostomy junction, and drainage of periabdominal fluid collection for perforation at the JJ, focal peritonitis associated with perianastomosis fluid collection on 06/25/2016. PLAN: 1. Milk of magnesia 30 mL p.o. now. 2. Discontinue Choi catheter. 3. Dietary consult. To have 3 med cups at bedside to drink 1 every 20 minutes or 3 per hour and record to ensure adequate fluid intake. 4. We will evaluate p.r.n. or in a.m. Ruby Johnson PA-C /[id number]
--- NOTE | 2016-06-29 09:57 | CR ---
Limited upper GI The patient is status post Roselyn-en-Y gastric bypass. There are left upper quadrant drains in place. There is no extravasation of contrast. The gastric pouch empties readily into a nondilated Roselyn limb . No complications are evident. Impression: 1. Status post Roselyn-en-Y gastric bypass without evidence for complication.
[2016-06-29] MEDS: Loratadine 10 MG Tab.DIS PO SCH (10:21)
[2016-06-29] MEDS: Fluconazole 100 MG Tab PO SCH (10:21)
[2016-06-29] MEDS: FLUoxetine 20 MG Cap PO SCH (10:21)
[2016-06-29] MEDS: Cyanocobalamin (Vitamin B12) 1,000 MCG Tab SL SCH (10:21)
[2016-06-29] MEDS: Heparin Sodium 5,000 Units/ML Vial SUBCUT SCH ×2 (10:22→21:51)
[2016-06-29] MEDS: Topiramate 25 MG Tab PO SCH (10:23)
[2016-06-29] MEDS: Modafinil 100 MG Tab PO SCH (10:27)
--- NOTE | 2016-06-29 13:19 | PN ---
DATE OF SERVICE: 06/28/2016 The patient has been afebrile with stable vital signs, still having problems with urinary retention. She retained urine overnight and had a straight cath this morning. We will see how she does during the day. We will switch her over to oral pain medication and encourage increased oral intake. She has a yeast infection in the vaginal area. We will give her some IV Diflucan followed by some oral Diflucan beginning tomorrow and some bowel stimulation. Checo Taveras MD /[id number]
[2016-06-29] MEDS: Metoclopramide 10 MG/2 ML SDV IV PRN (14:03)
[2016-06-29] MEDS: Ondansetron 4 MG/2 ML SDV IVPUSH PRN (14:03)
[2016-06-29] MEDS: Pantoprazole 40 MG Tab.CR PO SCH (15:31)
[2016-06-29] MEDS: MVI, Adult with Vitamin K 10 ML, Thiamine 200 MG, Chromium/Copper/Mang/Selen/Zn 1 ML in... IV SCH ×4 (15:34)
[2016-06-29] MEDS: Tamsulosin 0.4 MG Cap.ER PO SCH (21:52)
[2016-06-30] MEDS: ceFAZolin 2 GM in Sodium Chloride 0.9% 50 ML IV SCH ×3 (00:13→16:44)
[2016-06-30] MEDS: HYDROmorphone 2 MG Tab PO PRN ×3 (04:08→21:40)
[2016-06-30] MEDS: Metoclopramide 10 MG/2 ML SDV IV PRN (04:57)
[2016-06-30] MEDS: Clindamycin Phosphate 900 MG in Sodium Chloride 0.9% 100 ML IV SCH ×2 (05:01→14:58)
[2016-06-30] MEDS ORDERED: Magnesium Hydroxide 400 MG/5 ML Susp 30 ML Cup PO ONE (08:30)
[2016-06-30] MEDS: Loratadine 10 MG Tab.DIS PO SCH (09:05)
[2016-06-30] MEDS: Fluconazole 100 MG Tab PO SCH (09:05)
[2016-06-30] MEDS: FLUoxetine 20 MG Cap PO SCH (09:05)
[2016-06-30] MEDS: Heparin Sodium 5,000 Units/ML Vial SUBCUT SCH ×2 (09:06→21:40)
[2016-06-30] MEDS: Cyanocobalamin (Vitamin B12) 1,000 MCG Tab SL SCH (09:06)
[2016-06-30] MEDS: Topiramate 25 MG Tab PO SCH (09:06)
[2016-06-30] MEDS: Modafinil 100 MG Tab PO SCH (09:13)
[2016-06-30] MEDS ORDERED: Bisacodyl 5 MG Tab PO ONE (09:30)
--- NOTE | 2016-06-30 10:42 | PN ---
DATE OF SERVICE: 06/30/2016 HISTORY OF PRESENT ILLNESS: Ameena is a 41-year-old female. She is postop day 5. She has not had a bowel movement yet. Oral intake is marginal at 480. She did have 3 med cups yesterday and her HARLEY drains put out 115 and 85 of a light pink drainage respectively. Vital signs temp max of 99.7. Pain has been controlled. REVIEW OF SYSTEMS: Remainder of review of systems negative for any pertinent positives and negatives. OBJECTIVE: GENERAL: Ameena Carmichael is a 41-year-old female who is quite sleepy. VITAL SIGNS: Temperature is 98.3, pulse is 94, respirations are 18, and blood pressure 125/64. HEENT: Negative. NECK: Supple. HEART: Regular rate and rhythm. LUNGS: Clear. ABDOMEN: Abdominal binder was removed. Incisions do look good. HARLEY drains x2 intact. Extremities without peripheral edema. ASSESSMENT: Diagnostic laparoscopy with closure of perforation of the gastrojejunostomy junction, drainage of mary jo-abdominal fluid collection for perforation of the jejunostomy, focal peritonitis associated with mary jo anastomosis, fluid collection on 06/25/2016. PLAN: Milk of magnesia 30 mL now, followed with Dulcolax 2 tabs orally one hour after milk of Mag. Continue to work on oral intake. We will evaluate p.r.n. or in a.m. Ruby Johnson PA-C /[id number]
[2016-06-30] MEDS: Pantoprazole 40 MG Tab.CR PO SCH (16:49)
[2016-06-30] MEDS: MVI, Adult with Vitamin K 10 ML, Thiamine 200 MG, Chromium/Copper/Mang/Selen/Zn 1 ML in... IV SCH ×4 (18:26)
[2016-06-30] MEDS: Tamsulosin 0.4 MG Cap.ER PO SCH (20:30)
[2016-07-01] MEDS ORDERED: Acetaminophen 325 MG Tab PO PRN (03:15)
[2016-07-01] MEDS: HYDROmorphone 2 MG Tab PO PRN ×3 (07:29→14:36)
[2016-07-01] MEDS: Loratadine 10 MG Tab.DIS PO SCH (08:39)
[2016-07-01] MEDS: Cyanocobalamin (Vitamin B12) 1,000 MCG Tab SL SCH (08:39)
[2016-07-01] MEDS: FLUoxetine 20 MG Cap PO SCH (08:39)
[2016-07-01] MEDS: Topiramate 25 MG Tab PO SCH (08:39)
[2016-07-01] MEDS: Fluconazole 100 MG Tab PO SCH (08:39)
[2016-07-01] MEDS: Modafinil 100 MG Tab PO SCH (08:45)
[2016-07-01] MEDS: Heparin Sodium 5,000 Units/ML Vial SUBCUT SCH (09:28)
[2016-07-01 11:16] VITALS: BP 158/84
--- NOTE | 2016-07-01 11:46 | DISCH ---
ADMISSION DIAGNOSES: 1. Dysphagia. 2. Upper GI with dilatation of the gastrojejunostomy. 3. SP Roselyn-en-Y gastric bypass surgery, unspecified surgical malabsorption. 4. B12 deficiency. 5. Morbid obesity. 6. Depression. 7. Chiari II malformation. 8. Chronic vertigo. DISCHARGE DIAGNOSES: 1. Dysphagia. 2. EGD with possible stricture. 3. Diagnostic laparoscopy with closure of perforation of the gastrojejunostomy and drainage of the mary jo anastomotic fluid collection associated with localized peritonitis. HISTORY: Ameena Carmichael had a surgery on 06/25/2016. She had no operative complications. On postop day #1, she continued on ice chips. Her pain was well controlled and postop day #2, her upper GI x-ray was negative. Her diet was advanced. Pain was controlled with ER RN. Her diet was gradually progressed from step 1 to step 2 without cereal. She was changed over to oral pain medication and on 07/01/2016, she was able to be discharged to home. PHYSICAL EXAMINATION: GENERAL: Ameena is a 41-year-old female. VITAL SIGNS: Height is 5 feet 5 inches, weight is 276 pounds. TPR is 97, 79, 18. Blood pressure 155/77. HEENT: Negative. NECK: Supple. HEART: Regular rate and rhythm. LUNGS: Clear. ABDOMEN: 4x4s over HARLEY drain sites. Sutures in place. Abdominal binder is on. EXTREMITIES: Without peripheral edema. DISPOSITION: Discharged to home. CONDITION: Stable and improving. FOLLOWUP APPOINTMENTS: Ruby Johnson PA-C, on 07/08/2016 at 11:00 a.m. She is to resume her home medications and the Dilaudid 2 mg prescription was given, she is to take one q.6 hours p.r.n. pain #50. DIET: Step-2 gastric bypass diet. ACTIVITY: No lifting greater than 10 pounds for 2 weeks. Driving, do not drive while on pain medication. May shower. Keep operative site clean and dry. Notify provider if any fever, increased pain, nausea, or vomiting. SPECIAL INSTRUCTION: Use incentive spirometer 10 times every hour while awake for 2 weeks.
== END 2016-07-01 15:42 | disposition home or self-care (01) | DRG 220 ==
LOC: JP.MS 08:57 → JP.SDS 08:57 → EDSTATUS 10:45 → JP.MS 14:05 → UNDOADMIN 14:05 → JP.2SS 14:05
PROVIDERS: ADMIT Surgery; ATTEND Surgery
PROC: 0D7A8ZZ Dilation of Jejunum, Via Natural or Artificial Opening Endoscopic (ICD-10-PCS; principal; 2016-06-25)
PROC: 0D768ZZ Dilation of Stomach, Via Natural or Artificial Opening Endoscopic (ICD-10-PCS; principal; 2016-06-25)
PROC: 0DQ64ZZ Repair Stomach, Percutaneous Endoscopic Approach (ICD-10-PCS; 2016-06-25)
PROC: 0DQA4ZZ Repair Jejunum, Percutaneous Endoscopic Approach (ICD-10-PCS; 2016-06-25)
PROC: 0W9G4ZX Drainage of Peritoneal Cavity, Percutaneous Endoscopic Approach, Diagnostic (ICD-10-PCS; 2016-06-25)
DX: K56.69 Other intestinal obstruction (principal); R13.10 Dysphagia, unspecified; K63.1 Perforation of intestine (nontraumatic); K91.71 Accidental puncture and laceration of a digestive system organ or structure during a digestive system procedure; Y83.8 Other surgical procedures as the cause of abnormal reaction of the patient, or of later complication, without mention of misadventure at the time of the procedure; Y92.234 Operating room of hospital as the place of occurrence of the external cause; K65.9 Peritonitis, unspecified; Z98.84 Bariatric surgery status; Z98.0 Intestinal bypass and anastomosis status; K21.9 Gastro-esophageal reflux disease without esophagitis; F32.9 Major depressive disorder, single episode, unspecified; E53.8 Deficiency of other specified B group vitamins; K91.2 Postsurgical malabsorption, not elsewhere classified; E66.01 Morbid (severe) obesity due to excess calories; Z68.43 Body mass index [BMI] 50.0-59.9, adult; Z88.8 Allergy status to other drugs, medicaments and biological substances; Z85.41 Personal history of malignant neoplasm of cervix uteri; R33.9 Retention of urine, unspecified; G93.5 Compression of brain; G47.30 Sleep apnea, unspecified
CPT/HCPCS: 36415; 74176; 74176-26; 74240; 74240-26; 80053; 83735; 84100; 85027; 87070; 87075; 87205; 94762; 97110-GP; 97116-GP; 97161-GP; 97530-GP; 97535-GP; A9270-GY; C9113; J0131; J0690; J1100; J1170; J1450; J1644; J2060; J2185; J2250; J2310; J2405; J2704; J2765; J3010; J3410; J3411; J3420; J7030; J7040; J7042; J7050; J7120; Q9967; S0077

== ENCOUNTER 2016-07-03 21:23 | Observation (INO) | payer MEDICAID ==
[2016-07-03] MEDS ORDERED: HYDROmorphone 1 MG/ML Syringe IVPUSH ONE ×2 (21:39→23:32)
[2016-07-03] MEDS ORDERED: Ondansetron 4 MG/2 ML SDV IVPUSH ONE (21:40)
[2016-07-03] MEDS ORDERED: Sodium Chloride 0.9% 1,000 ML IV SCH (21:45)
[2016-07-03] MEDS ORDERED: Sodium Chloride 0.9% 10 ML Syringe FLUSH ONE (22:04)
[2016-07-03] MEDS ORDERED: Iopamidol 612 MG/ML 150 ML Bottle IV SCH (22:15)
--- NOTE | 2016-07-03 23:59 | EDM.PDOC ---
ED HPI GI/ABDOMINAL - General Chief Complaint: Abdominal Pain Stated Complaint: DISCHARGED WED NOT DOING WELL Time Seen by Provider: 07/03/16 21:37 Source: Reports: Patient History Limitations: Reports: No limitations - History of Present Illness INITIAL COMMENTS - FREE TEXT/NARRATIVE: History of present illness: [This 41-year-old female had a Roselyn-en-Y procedure done on May 28. She did well until last week when she had to be dilated. The dilation procedure was complicated by some sort of tearing requiring laparoscopic procedure to be done and HARLEY drains placed. 2 days ago the HARLEY drains were removed and the patient states that since then she's had progressive abdominal pain and bloating and presents now with 10 out of 10 abdominal pain that is generalized. He's had no fever with this she's had some nausea and one or 2 episodes of vomiting. She denies any dysuria.] Review of systems: As per history of present illness and below otherwise all systems reviewed and negative. Past medical history: As per history of present illness and as reviewed below otherwise noncontributory. Surgical history: As per history of present illness and as reviewed below otherwise noncontributory. Social history: No reported history of drug or alcohol abuse. Family history: As per history of present illness and as reviewed below otherwise noncontributory. Physical exam: HEENT: Atraumatic, normocephalic, pupils reactive, negative for conjunctival pallor or scleral icterus, mucous membranes are somewhat dry, throat clear, neck supple, nontender, trachea midline. Lungs: Clear to auscultation, breath sounds equal bilaterally, chest nontender. Heart: S1S2, regular, negative for clicks, rubs, or JVD. Abdomen: Her abdomen is distended with generalized tenderness with hypoactive bowel sounds. It is somewhat doughy in consistency. The stab wounds all appear to be healing well without signs of infection. Pelvis: Stable nontender. Genitourinary: Deferred. Rectal: Deferred. Extremities: Atraumatic, negative for cords or calf pain. Neurovascular unremarkable. Neuro: Awake, alert, oriented.Exam nonfocal. Diagnostics: [CBC complete metabolic panel a and UA and lipase and amylase were done. CT of the abdomen demonstrates essentially ileus.] Therapeutics: [She has received IV fluids and 2 doses of Dilaudid] Impression: [Ileus in this postop Roselyn-en-Y patient] Plan: [I spoke with Dr. Taveras who advises us to admit her on a COMMUNICATIONS PROJECT MANAGER pump.] Definitive disposition and diagnosis as appropriate pending reevaluation and review of above. - Related Data Allergies/ADRs: Allergies Allergy/AdvReac Type Severity Reaction Status Date / Time losartan AdvReac Cough Verified 06/25/16 09:56 omeprazole AdvReac Diarrhea Verified 06/25/16 09:56 Home Meds: Home Meds Acetaminophen [Tylenol Extra Strength] 500 mg PO ASDIRECTED PRN 05/26/16 [ History] Calcium Citrate 400 mg PO BID 05/26/16 [History] FLUoxetine [PROzac] 40 mg PO DAILY 05/26/16 [History] Mecobalamin [Methylcobalamin] 1,000 mcg SL DAILY 05/26/16 [History] Multivitamin with Minerals [Multiple Vitamin] 1 tab PO BID 05/26/16 [History] Pantoprazole [ProTONIX] 40 mg PO DAILY 05/26/16 [History] Pseudoephedrine [Sudafed 12 Hour] 120 mg PO BID 05/26/16 [History] Ranitidine HCl [Ranitidine] 300 mg PO BEDTIME 05/26/16 [History] Topiramate 50 mg PO DAILY 05/26/16 [History] Vitamin B Complex [B Complex] 1 tab PO DAILY 05/26/16 [History] Modafinil [Provigil] 200 mg PO DAILY 06/24/16 [History] Ondansetron [Zofran] 4 mg PO Q4H PRN 06/24/16 [History] Cholecalciferol (Vitamin D3) [Vitamin D3] 5,000 units PO DAILY 06/25/16 [History ] Celecoxib [CeleBREX] 200 mg PO DAILY 07/03/16 [History] HYDROmorphone [Dilaudid] 2 mg PO Q4HR 07/03/16 [History] Past Medical History HEENT History: Reports: Allergic rhinitis, Sinusitis Cardiovascular History: Reports: Hypertension Respiratory History: Reports: Sleep apnea, SOB Gastrointestinal History: Reports: GERD Genitourinary History: Reports: Renal calculus, UTI, recurrent Other Genitourinary History: colporrhaphy/perineoplasty; bladder surgery ACID BATH MIXER History: Reports: Polycystic Ovaries, Musculoskeletal History: Reports: Other (see below) Other Musculoskeletal History: bilat Carpal Tunnel Neurological History: Reports: Other (see below) Other Neuro History: scoliosis Psychiatric History: Reports: Depression Endocrine/Metabolic History: Reports: Diabetes, gestational, Obesity/BMI 30+ Hematologic History: Reports: B12 deficiency Oncologic (Cancer) History: Reports: Cervix Dermatologic History: Reports: Other (see below) Other Dermatologic History: skin tags - Infectious Disease History Infectious Disease History: Reports: Chicken pox - Past Surgical History HEENT Surgical History: Reports: Oral surgery, Tonsillectomy GI Surgical History: Reports: Bariatric procedure, EGD, Other (see below) Other GI Surgeries/Procedures: umbilical hernia repair Female Surgical History: Reports: Hysterectomy, Kidney stone extraction, Ureteral stent, Other (see below) Other Female Surgeries/Procedures: repair of ureter, laser cervix Endocrine Surgical History: Reports: None Social & Family History - Tobacco Use Smoking Status *Q: Never Smoker Second Hand Smoke Exposure: No - Caffeine Use Caffeine Use: Reports: None - Recreational Drug Use Recreational Drug Use: No ED ROS GENERAL - Review of Systems Review Of Systems: ROS reveals no pertinent complaints other than HPI. ED EXAM, GI/ABD - Physical Exam Exam: See Below Course - Vital Signs Last Recorded V/S: Last Vital Signs Temp 36.3 C 07/03/16 21:34 Pulse 75 07/03/16 23:13 Resp 20 07/03/16 23:13 BP 143/83 H 07/03/16 23:13 Pulse Ox 97 07/03/16 23:13 - Orders/Labs/Meds Orders: Active Orders 24 hr Category Date Time Status Abdomen Pelvis w Cont [CT] Stat Exams 07/03/16 21:38 Taken Sodium Chloride 0.9% [Normal Saline] 1,000 ml Med 07/03/16 21:45 Active IV ASDIRECTED Sodium Chloride 0.9% [Normal Saline] 85 ml Med 07/03/16 22:15 Active IV ASDIRECTED Medication Orders Sodium Chloride (Normal Saline) 1,000 mls @ 500 mls/hr IV ASDIRECTED KENNETH Last Admin: 07/03/16 21:51 Dose: 500 mls/hr Sodium Chloride (Normal Saline) 85 mls @ 3 mls/sec IV ASDIRECTED KENNETH Last Admin: 07/03/16 22:22 Dose: 3 mls/sec Labs: Laboratory Tests 07/03/16 07/03/16 07/03/16 Range/Units 21:38 21:38 22:37 WBC 7.4 (4.5-11.0) K/uL RBC 4.52 (3.30-5.50) M/uL Hgb 13.5 (12.0-15.0) g/dL Hct 40.8 (36.0-48.0) % MCV 90 (80-98) fL MCH 30 (27-31) pg MCHC 33 (32-36) % Plt Count 282 (150-400) K/uL Neut % (Auto) 60 (36-66) % Lymph % (Auto) 21 L (24-44) % Sherman % (Auto) 14 H (2-6) % Eos % (Auto) 3 (2-4) % Baso % (Auto) 2 H (0-1) % Sodium 137 L (140-148) mmol/L Potassium 3.7 (3.6-5.2) mmol/L Chloride 102 (100-108) mmol/L Carbon Dioxide 23 (21-32) mmol/L Anion Gap 15.7 H (5.0-14.0) mmol/L BUN 7 (7-18) mg/dL Creatinine 0.8 (0.6-1.0) mg/dL Est Cr Clr Drug Dosing 81.46 mL/min Estimated GFR (MDRD) > 60 (>60) Glucose 89 (74-106) mg/dL Calcium 8.4 L (8.5-10.1) mg/dL Total Bilirubin 0.4 (0.2-1.0) mg/dL AST 44 H D (15-37) U/L ALT 51 (12-78) U/L Alkaline Phosphatase 95 (46-116) U/L Total Protein 7.6 (6.4-8.2) g/dL Albumin 3.0 L (3.4-5.0) g/dL Globulin 4.6 H (2.3-3.5) g/dL Albumin/Globulin Ratio 0.7 L (1.2-2.2) Amylase 39 (25-115) U/L Lipase 160 (73-393) U/L Urine Color Yellow Urine Appearance Slightly cloudy Urine pH 7.0 (4.5-8.0) Ur Specific Grahn 1.015 (1.008-1.030) Urine Protein Negative (NEGATIVE) mg/dL Urine Glucose (UA) Normal (NEGATIVE) mg/dL Urine Ketones 50 H (NEGATIVE) mg/dL Urine Occult Blood Negative (NEGATIVE) Urine Nitrite Negative (NEGATIVE) Urine Bilirubin Negative (NEGATIVE) Urine Urobilinogen Normal (NORMAL) mg/dL Ur Leukocyte Esterase Negative (NEGATIVE) Urine RBC 0-5 (0-5) Urine WBC 0-5 (0-5) Ur Epithelial Cells Few Amorphous Sediment Not seen Urine Bacteria Few Urine Mucus Few Urine Other Meds: Medications Generic Name Dose Route Start Last Admin Trade Name Freq PRN Reason Stop Dose Admin Sodium Chloride 1,000 mls @ 500 mls/hr 07/03/16 21:45 07/03/16 21:51 Normal Saline IV 500 mls/hr ASDIRECTED KENNETH Administration Sodium Chloride 85 mls @ 3 mls/sec 07/03/16 22:15 07/03/16 22:22 Normal Saline IV 3 mls/sec ASDIRECTED KENNETH Administration Discontinued Medications Generic Name Dose Route Start Last Admin Trade Name Freq PRN Reason Stop Dose Admin Hydromorphone HCl 1 mg 07/03/16 21:39 07/03/16 21:56 Dilaudid IVPUSH 07/03/16 21:40 1 mg ONETIME ONE Administration Hydromorphone HCl 1 mg 07/03/16 23:32 07/03/16 23:39 Dilaudid IVPUSH 07/03/16 23:33 1 mg ONETIME ONE Administration Iopamidol 150 ml 07/03/16 22:15 07/03/16 22:22 Isovue-300 (61%) IV 07/03/16 22:16 150 ml . DIRECTED KENNETH Administration Ondansetron HCl 4 mg 07/03/16 21:40 07/03/16 21:53 Zofran IVPUSH 07/03/16 21:41 4 mg ONETIME ONE Administration Sodium Chloride 10 ml 07/03/16 22:04 07/03/16 22:22 Saline Flush FLUSH 07/03/16 22:05 10 ml ONETIME ONE Administration Departure - Departure Time of Disposition: 23:58 Disposition: Admitted As Inpatient 64 Condition: fair Clinical Impression: Ileus following gastrointestinal surgery, History of Roselyn-en-Y gastric bypass Forms: ED Department Discharge - My Orders Last 24 Hours: My Active Orders 07/03/16 21:38 Abdomen Pelvis w Cont [CT] Stat 07/03/16 21:45 Sodium Chloride 0.9% [Normal Saline] 1,000 ml IV ASDIRECTED 07/03/16 22:15 Sodium Chloride 0.9% [Normal Saline] 85 ml IV ASDIRECTED - Assessment/Plan Last 24 Hours: My Active Orders 07/03/16 21:38 Abdomen Pelvis w Cont [CT] Stat 07/03/16 21:45 Sodium Chloride 0.9% [Normal Saline] 1,000 ml IV ASDIRECTED 07/03/16 22:15 Sodium Chloride 0.9% [Normal Saline] 85 ml IV ASDIRECTED
[2016-07-04] MEDS ORDERED: HYDROmorphone/Normal Saline 15 MG/30 ML PCA IV PRN (00:22)
[2016-07-04] MEDS ORDERED: Naloxone 0.4 MG/ML SDV IV PRN (00:22)
[2016-07-04] MEDS: Dextrose 5%-Lactated Ringers 1,000 ML IV SCH ×4 (07:30→20:45)
[2016-07-04] MEDS: HYDROmorphone 2 MG Tab PO PRN ×4 (09:39→22:26)
[2016-07-04] MEDS: Acetaminophen Soln 650 MG/20.3 ML UD Cup PO SCH ×3 (09:40→22:26)
[2016-07-04] MEDS: Pantoprazole 40 MG Tab.CR PO SCH (09:41)
[2016-07-04] MEDS ORDERED: Acetaminophen 160 MG Tab,Disintegrating PO SCH (10:00)
[2016-07-04] MEDS: Ondansetron 4 MG Tab.DIS PO PRN ×2 (10:40→16:41)
[2016-07-04] MEDS: Topiramate 25 MG Tab PO SCH (11:57)
[2016-07-04] MEDS: Celecoxib 200 MG Cap PO SCH (11:57)
[2016-07-04] MEDS: Modafinil 100 MG Tab PO SCH (11:57)
[2016-07-04] MEDS: FLUoxetine 20 MG Cap PO SCH (11:57)
[2016-07-05] MEDS: Dextrose 5%-Lactated Ringers 1,000 ML IV SCH ×3 (03:21→18:11)
[2016-07-05] MEDS: Acetaminophen Soln 650 MG/20.3 ML UD Cup PO SCH ×4 (05:30→21:18)
[2016-07-05] MEDS: HYDROmorphone 2 MG Tab PO PRN ×2 (05:34→11:28)
[2016-07-05] MEDS: Pantoprazole 40 MG Tab.CR PO SCH (07:27)
[2016-07-05] MEDS ORDERED: fentaNYL 25 MCG/HR Transdermal Patch TRDERM SCH (08:30)
[2016-07-05] MEDS: Celecoxib 200 MG Cap PO SCH (11:28)
[2016-07-05] MEDS: VERIFY FENT PATCH TOP SCH ×2 (11:28→20:33)
[2016-07-05] MEDS: FLUoxetine 20 MG Cap PO SCH (11:29)
[2016-07-05] MEDS: Topiramate 25 MG Tab PO SCH (11:29)
[2016-07-05] MEDS: Modafinil 100 MG Tab PO SCH (11:35)
--- NOTE | 2016-07-05 16:08 | PN ---
DATE OF SERVICE: 07/04/2016 The patient was discharged on Wednesday from the Roselyn-en-Y gastric bypass. She has not with inadequate pain control. She had been on Tylenol and Celebrex, and only 2 mg of Dilaudid q.4 hours. Overall, the patient appears to be doing reasonably well. At this point, the problem simply is inadequate pain control. We will move her Dilaudid dose up to 2 mg to 4 mg q.4 hours p.r.n. and also restart Celebrex and Tylenol today. I encouraged increased activity. 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 She will hopefully be ready for discharge home tomorrow. Checo Taveras MD /[id number]
[2016-07-06] MEDS: Ondansetron 4 MG Tab.DIS PO PRN ×2 (00:06→04:14)
[2016-07-06] MEDS: Acetaminophen Soln 650 MG/20.3 ML UD Cup PO SCH ×3 (05:48→12:23)
[2016-07-06] MEDS: VERIFY FENT PATCH TOP SCH (08:14)
[2016-07-06] MEDS: FLUoxetine 20 MG Cap PO SCH (08:15)
[2016-07-06] MEDS: Pantoprazole 40 MG Tab.CR PO SCH (08:15)
[2016-07-06] MEDS: Topiramate 25 MG Tab PO SCH (08:15)
[2016-07-06] MEDS: Celecoxib 200 MG Cap PO SCH (08:16)
[2016-07-06] MEDS: Modafinil 100 MG Tab PO SCH (08:25)
[2016-07-06 12:19] VITALS: BP 152/87
[2016-07-06] MEDS ORDERED: diphenhydrAMINE 25 MG Cap PO PRN (12:22)
--- NOTE | 2016-07-06 13:41 | PN ---
DATE OF SERVICE: 07/05/2016 The patient has been afebrile with stable vital signs but is still complaining of inadequate pain control. I think we will add a fentanyl patch, along with the Dilaudid. Otherwise, abdomen is soft. We are not really seeing any suggestion of there being problems with the recent perforation. We will remove the stitches today and have her get in the shower. We will add the fentanyl patch, and while that is taking effect, we will have her on continuous pulse ox. Dietary will plan to see the patient tomorrow. She will likely be ready for discharge home at that time. She is having some frequent loose bowel movements, which may be related to the metformin, and we will add some Imodium p.r.n. for those. Checo Taveras MD /[id number]
--- NOTE | 2016-07-07 02:05 | DISCH ---
ADMISSION DIAGNOSES: Abdominal pain, status post Roselyn-en-Y gastric bypass surgery 05/28/2016 and repair of perforation, history of allergic rhinitis, hypertension, sleep apnea with use of CPAP, history of renal calculus, depression, B12 deficiency, unspecified surgical malabsorption. DISCHARGE DIAGNOSES: Status post Roselyn-en-Y gastric bypass surgery, status post laparoscopic repair of esophageal perforation, abdominal pain, pain management. HISTORY: Ameena Carmichael presented to the emergency room on 07/03/2016 stating she had progressive abdominal pain and bloating. She states her pain was a 10/10. She was admitted to [facility], was started on Dilaudid ADDICTION NURSE and her pain seemed to be managed. She was restarted on Celebrex and Tylenol. The ADDICTION NURSE was discontinued and her home medications were restarted. On 07/05/2016, she continued to have an increased amount of pain. She was started on fentanyl 25 mcg patch and this seemed to help quite a bit in the way of pain. She was able to be discharged to home on 07/06/2016. REVIEW OF SYSTEMS: Remainder of review of systems negative for any pertinent positives and negatives. HEENT: Negative. NECK: Negative. HEART: Negative for chest pain, shortness of breath, fast or irregular heart beat. LUNGS: Negative for cough. ABDOMEN: No nausea, vomiting, diarrhea, or constipation. No red or black stools. : Negative for UTI signs and symptoms. EXTREMITIES: Without joint pain or swelling. NEURO: Negative for headaches, dizziness. SKIN: Without rash. PHYSICAL EXAMINATION: GENERAL: Ameena Carmichael is a 41-year-old female. VITAL SIGNS: Height is 5 feet 5 inches, weight is 276 pounds. TPR is 96.5, 60, 18. Blood pressure 141/82. HEENT: Negative. NECK: Supple. HEART: Regular rate and rhythm. LUNGS: Clear. ABDOMEN: Soft, nontender. Incisions healing well. : Deferred. EXTREMITIES: Without peripheral edema. NEURO: Cranial nerves 2 through 12 intact. SKIN: Without rash. PSYCHIATRIC: Mood and affect appropriate. DISPOSITION: Discharged to home. CONDITION: Stable and improving. FOLLOWUP APPOINTMENT: With Ruby Johnson PA-C, on 07/10/2016 at 10:00 a.m. HOME MEDICATIONS: Duragesic 25 mcg patch #3 to change on Wednesday07/08/2016. She is to restart her Prozac 40 mg daily, vitamin D3 5000 international units daily, calcium citrate p.o. chewable b.i.d., Tylenol Extra Strength 500 mg, Sudafed 12 hours 120 mg p.o. b.i.d., Zofran 4 mg sublingual q.4 hours p.r.n. nausea, complete multivitamin one tablet b.i.d., Provigil 200 mg p.o. daily, vitamin B12 1000 mcg sublingual, topiramate 50 mg p.o. daily. She can continue Dilaudid as needed, discontinue ranitidine and Protonix if no heartburn. DIET: Step-2 gastric bypass diet with no cereal. Drink 8 to 10 glasses of water a day. ACTIVITY: As tolerated. Walk 8 times daily inside your home. Driving, do not drive on pain medication. Shower bathing, may shower. Notify provider if any fever, nausea, or vomiting and keep record of food and liquid intake. Total time spent with the patient in discharge planning 20 minutes answering questions, reviewing medication, vitamins, fluid intake.
== END 2016-07-06 12:45 | disposition home or self-care (01) ==
LOC: JP.ED 21:23 → JP.2SS 07-04 00:07
PROVIDERS: ADMIT Surgery; ATTEND Surgery
DX: K91.89 Other postprocedural complications and disorders of digestive system (principal); I10 Essential (primary) hypertension; G47.30 Sleep apnea, unspecified; F32.9 Major depressive disorder, single episode, unspecified; K21.9 Gastro-esophageal reflux disease without esophagitis; R14.0 Abdominal distension (gaseous); E53.8 Deficiency of other specified B group vitamins; E11.9 Type 2 diabetes mellitus without complications; E66.9 Obesity, unspecified; Z87.442 Personal history of urinary calculi; Z98.84 Bariatric surgery status; Z79.899 Other long term (current) drug therapy; Z90.710 Acquired absence of both cervix and uterus; Z98.890 Other specified postprocedural states
CPT/HCPCS: 36415; 74177; 80053; 81001; 82150; 83690; 85025; 94762; 96361; 96374; 96375; 96376; 99285; A9270; G0378; J1170; J2405; J7030; J7040; J7042; J7050

== ENCOUNTER 2016-07-15 07:49 | Emergency (ER) | payer MEDICAID ==
[2016-07-15] MEDS ORDERED: Ketorolac 60 MG/2 ML SDV IM ONE (08:11)
--- NOTE | 2016-07-15 08:47 | EDM.PDOC ---
[id number]: ?KIDNEY STONE ?? Time Seen by Provider: 07/15/16 08:25 Source of Information: Reports: Patient History Limitations: Reports: No limitations - History of Present Illness INITIAL COMMENTS - FREE TEXT/NARRATIVE: 41-year-old female with a history of renal stones presents with right flank pain for the past 5 hours. Onset: sudden (Around 3 AM) Quality: Reports: Sharp, Stabbing Severity: severe Improves with: Reports: None Worsens with: Reports: None Associated Symptoms: Reports: nausea/vomiting. Denies: chest pain, cough, fever /chills, shortness of breath Right Flank Pain Score (Numeric/FACES): 8 - Related Data Allergies Allergy/AdvReac Type Severity Reaction Status Date / Time losartan AdvReac Cough Verified 06/25/16 09:56 omeprazole AdvReac Diarrhea Verified 06/25/16 09:56 Home Meds: Home Meds Acetaminophen [Tylenol Extra Strength] 500 mg PO ASDIRECTED PRN 05/26/16 [ History] Calcium Citrate 400 mg PO BID 05/26/16 [History] FLUoxetine [PROzac] 40 mg PO DAILY 05/26/16 [History] Mecobalamin [Methylcobalamin] 1,000 mcg SL DAILY 05/26/16 [History] Multivitamin with Minerals [Multiple Vitamin] 1 tab PO BID 05/26/16 [History] Pantoprazole [ProTONIX] 40 mg PO DAILY 05/26/16 [History] Pseudoephedrine [Sudafed 12 Hour] 120 mg PO BID 05/26/16 [History] Ranitidine HCl [Ranitidine] 300 mg PO BEDTIME 05/26/16 [History] Topiramate 50 mg PO DAILY 05/26/16 [History] Vitamin B Complex [B Complex] 1 tab PO DAILY 05/26/16 [History] Modafinil [Provigil] 200 mg PO DAILY 06/24/16 [History] Ondansetron [Zofran] 4 mg PO Q4H PRN 06/24/16 [History] Cholecalciferol (Vitamin D3) [Vitamin D3] 5,000 units PO DAILY 06/25/16 [History ] Celecoxib [CeleBREX] 200 mg PO DAILY 07/03/16 [History] HYDROmorphone [Dilaudid] 2 mg PO Q4HR 07/03/16 [History] fentaNYL [Duragesic] 25 mcg TRDERM Q72H #3 patch 07/06/16 [Rx] Past Medical History HEENT History: Reports: Allergic rhinitis, Sinusitis Cardiovascular History: Reports: Hypertension Respiratory History: Reports: Sleep apnea, SOB Gastrointestinal History: Reports: GERD Genitourinary History: Reports: Renal calculus, UTI, recurrent Other Genitourinary History: colporrhaphy/perineoplasty; bladder surgery FIELD OPERATOR History: Reports: Polycystic Ovaries, Musculoskeletal History: Reports: Other (see below) Other Musculoskeletal History: bilat Carpal Tunnel Neurological History: Reports: Other (see below) Other Neuro History: scoliosis Psychiatric History: Reports: Depression Endocrine/Metabolic History: Reports: Diabetes, gestational, Obesity/BMI 30+ Hematologic History: Reports: B12 deficiency Oncologic (Cancer) History: Reports: Cervix Dermatologic History: Reports: Other (see below) Other Dermatologic History: skin tags - Infectious Disease History Infectious Disease History: Reports: Chicken pox - Past Surgical History HEENT Surgical History: Reports: Oral surgery, Tonsillectomy GI Surgical History: Reports: Bariatric procedure, EGD, Other (see below) Other GI Surgeries/Procedures: umbilical hernia repair Female Surgical History: Reports: Hysterectomy, Kidney stone extraction, Ureteral stent, Other (see below) Other Female Surgeries/Procedures: repair of ureter, laser cervix Endocrine Surgical History: Reports: None Social & Family History - Tobacco Use Smoking Status *Q: Never Smoker Second Hand Smoke Exposure: No - Caffeine Use Caffeine Use: Reports: None - Recreational Drug Use Recreational Drug Use: No ED ROS GENERAL - Review of Systems Review Of Systems: See Below Constitutional: Reports: no symptoms HEENT: Reports: No symptoms Respiratory: Denies: Shortness of Breath Cardiovascular: Denies: Chest pain GI/Abdominal: Reports: Nausea. Denies: Abdominal pain, Vomiting : Reports: flank pain, urgency Neurological: Reports: No Symptoms ED EXAM, GENERAL - Physical Exam Exam: See Below Exam Limited By: No limitations General Appearance: alert, moderate distress Respiratory/Chest: no respiratory distress, lungs clear Cardiovascular: regular rate, rhythm GI/Abdominal: Soft, Tender (Some tenderness to palpation along the right abdomen and right flank) Neurological: alert, oriented Psychiatric: anxious Skin Exam: Warm, Dry Course - Vital Signs Last Recorded V/S: Last Vital Signs Temp 97.3 F 05/10/17 07:58 Pulse 83 07/15/16 07:58 Resp 20 07/15/16 07:58 BP 127/68 07/15/16 11:34 Pulse Ox 98 07/15/16 07:58 - Orders/Labs/Meds Labs: Laboratory Tests 07/15/16 07/15/16 Range/Units 09:58 09:58 WBC 10.2 (4.5-11.0) K/uL RBC 4.24 (3.30-5.50) M/uL Hgb 12.9 (12.0-15.0) g/dL Hct 38.9 (36.0-48.0) % MCV 92 (80-98) fL MCH 30 (27-31) pg MCHC 33 (32-36) % Plt Count 232 (150-400) K/uL Neut % (Auto) 84 H (36-66) % Lymph % (Auto) 7 L (24-44) % Mifflin % (Auto) 8 H (2-6) % Eos % (Auto) 0 L (2-4) % Baso % (Auto) 0 (0-1) % Sodium 141 (140-148) mmol/L Potassium 4.1 (3.6-5.2) mmol/L Chloride 106 (100-108) mmol/L Carbon Dioxide 21 (21-32) mmol/L Anion Gap 13.6 (5.0-14.0) mmol/L BUN 19 H D (7-18) mg/dL Creatinine 0.9 (0.6-1.0) mg/dL Est Cr Clr Drug Dosing 72.41 mL/min Estimated GFR (MDRD) > 60 (>60) Glucose 89 (74-106) mg/dL Calcium 8.1 L (8.5-10.1) mg/dL Meds: Medications Discontinued Medications Generic Name Dose Route Start Last Admin Trade Name Freq PRN Reason Stop Dose Admin Hydromorphone HCl 1 mg 07/15/16 09:33 07/15/16 09:43 Dilaudid IVPUSH 07/15/16 09:34 1 mg ONETIME ONE Administration Sodium Chloride 1,000 mls @ 1,000 mls/hr 07/15/16 09:30 07/15/16 09:28 Normal Saline IV 1,000 mls/hr ASDIRECTED KENNETH Administration Ketorolac Tromethamine 60 mg 07/15/16 08:11 07/15/16 08:17 Toradol IM 07/15/16 08:12 60 mg ONETIME ONE Administration Ondansetron HCl 4 mg 07/15/16 09:49 07/15/16 09:58 Zofran IVPUSH 07/15/16 09:50 4 mg ONETIME ONE Administration Tamsulosin HCl 0.4 mg 07/15/16 09:18 07/15/16 09:28 Flomax PO 07/15/16 09:19 0.4 mg ONETIME ONE Administration - Re-Assessments/Exams Free Text/Narrative Re-Assessment/Exam: 07/15/16 10:53 CBC and BMP were normal. Patient was given 60 mg of Toradol IM and sent for CT scan which confirmed significant right hydronephrosis with a 5 mm stone in the UV junction. Patient was then given 1 mg of Dilantin IV as well as 4 mg of Zofran. She was bolused with 1 L of normal saline and continued on 500 mL an hour. 07/15/16 11:22 Symptoms were well controlled over the next hour and a half, and the patient decided to try to go home. She is going to push fluids, take Dilaudid as needed and I sent her with 10 ketorolac to take every 6 hours. She'll recheck at any time if worsening or if not improving in 2-3 days. 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 Recheck in 2-3 days if still having some pain symptoms, or return sooner at any time if worsening or unable to take medication.
--- NOTE | 2016-07-15 09:15 | CT ---
Abdomen pelvis CT. History: Technique: Unenhanced axial images were obtained from the lung bases extending through the abdomen a nd pelvis. Coronal images were reconstructed. Total DLP: 1614. Comparison: 03 July 2016. Findings: Limited evaluation of the lower lung ovalle demonstrates no abnormalities. There has been interval development of severe hydronephrosis and hydroureter on the right. There is an obstructing 5 mm stone at the right UVJ. There are multiple additional renal calculi involving th e right kidney. The left kidney demonstrates no hydronephrosis. The liver, gallbladder, pancreas, and spleen are stable. There are postsurgical changes consistent w ith a gastric bypass procedure. No complications are demonstrated. Areas of fat containing umbilical hernia. There has been interval decrease in the previously noted dilated small bowel. There has bee n interval development of a 4 cm right adnexal cyst which is likely physiologic. There is no free ai r or free fluid within the abdomen or pelvis. Impression: 1. Obstructing 5 mm right UVJ stone with severe right hydronephrosis and hydroureter. 2. 4 cm right adnexal cyst. A follow-up pelvic ultrasound is recommended to confirm resolution follo wing 2 cycles. 3. Interval resolution of dilated small bowel.
[2016-07-15] MEDS ORDERED: Tamsulosin 0.4 MG Cap.ER PO ONE (09:18)
[2016-07-15] MEDS ORDERED: Sodium Chloride 0.9% 1,000 ML IV SCH (09:30)
[2016-07-15] MEDS ORDERED: HYDROmorphone 1 MG/ML Syringe IVPUSH ONE (09:33)
[2016-07-15] MEDS ORDERED: Ondansetron 4 MG/2 ML SDV IVPUSH ONE (09:49)
[2016-07-15 11:35] VITALS: BP 127/68
== END 2016-07-15 11:34 | disposition home or self-care (01) ==
LOC: JP.ED 07:49
DX: Q62.0 Congenital hydronephrosis (principal); N13.2 Hydronephrosis with renal and ureteral calculous obstruction; I10 Essential (primary) hypertension; K21.9 Gastro-esophageal reflux disease without esophagitis; Z87.440 Personal history of urinary (tract) infections; F32.9 Major depressive disorder, single episode, unspecified; E66.9 Obesity, unspecified; Z88.8 Allergy status to other drugs, medicaments and biological substances; Z79.899 Other long term (current) drug therapy; Z98.890 Other specified postprocedural states; Z98.84 Bariatric surgery status; Z90.710 Acquired absence of both cervix and uterus
CPT/HCPCS: 36415; 74176; 80048; 85025; 96361; 96372; 96374; 96375; 99284; A9270; J1170; J1885; J2405; J7040

== ENCOUNTER 2016-08-06 09:57 | Day surgery (SDC) | payer MEDICAID ==
[2016-08-06] MEDS ORDERED: Scopolamine 1.5 MG Transdermal Patch TOP ONE (11:30)
[2016-08-06] MEDS ORDERED: Lactated Ringers 1,000 ML IV SCH (11:30)
[2016-08-06] MEDS ORDERED: Cyanocobalamin (Vitamin B12) 1,000 MCG/ML SDV IM ONE (12:00)
[2016-08-06] MEDS ORDERED: Glycopyrrolate 0.2 MG/ML 2 ML SYRINGE IVPUSH ONE (12:00)
[2016-08-06] MEDS ORDERED: Propofol 200 MG/20 ML SDV ONE (12:12)
[2016-08-06] MEDS ORDERED: fentaNYL 100 MCG/2 ML SDV ONE (12:13)
[2016-08-06] MEDS ORDERED: Midazolam 1 MG/ML 2 ML SDV ONE (12:13)
[2016-08-06] MEDS ORDERED: MVI, Adult with Vitamin K 10 ML, Thiamine 200 MG, Chromium/Copper/Mang/Selen/Zn 1 ML in... IV ONE ×4 (13:00)
[2016-08-06 14:09] VITALS: BP 115/82
--- NOTE | 2016-08-07 12:59 | OR ---
DATE OF PROCEDURE: 08/06/2016 PREOPERATIVE DIAGNOSIS: Stricture of gastrojejunostomy. POSTOPERATIVE DIAGNOSIS: Stricture of gastrojejunostomy. OPERATIVE PROCEDURE: Upper GI endoscopy with dilation gastrojejunostomy (15941). ANESTHESIA: IV sedation. 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 Plan is to proceed with upper GI endoscopy with dilation as indicated. Potential risks including bleeding and perforation were discussed, and the patient wishes to proceed. DETAILS OF PROCEDURE: The patient was taken to the operating room and placed in a left lateral decubitus position. IV sedation was administered, after which the upper GI endoscope was passed orally through the length of the esophagus and into the gastric pouch. No retained food or fluid was noted. The patient noted a moderate strictured gastrojejunostomy with the 1-cm gastroscope not quite being able to pass through the anastomosis. A Bard gastrointestinal balloon catheter was then centered across the anastomosis and inflated to 45-Turkish to the level 1, i.e. 30 PSI, was held in position for 1 minute after which the balloon catheter was deflated and withdrawn. The scope could easily be passed through the anastomosis and a satisfactory dilation was confirmed. The scope was withdrawn. The procedure was concluded. There were no evident complications. Checo Taveras MD /[id number]
== END 2016-08-06 14:59 | disposition home or self-care (01) ==
LOC: JP.SDS 09:57
PROVIDERS: ATTEND Surgery
DX: K91.89 Other postprocedural complications and disorders of digestive system (principal); G47.33 Obstructive sleep apnea (adult) (pediatric); E66.9 Obesity, unspecified; F32.9 Major depressive disorder, single episode, unspecified; K21.9 Gastro-esophageal reflux disease without esophagitis; Z88.8 Allergy status to other drugs, medicaments and biological substances; Z98.84 Bariatric surgery status
CPT/HCPCS: 43245; A9270; J2250; J2704; J3010; J3411; J3420; J7120